=== PATIENT | female | born 1985 | race Caucasian/White ===

== ENCOUNTER → 2020-10-14 | Outpatient (CLI) | payer BC ==
[2020-10-14 16:06] LABS: Insulin Level 5.4 mIU/mL (3.0-25.0)
[2020-10-14 16:43] LABS: Thyroid Peroxidase Antibodies <28.0 U/mL (0.0-60.0)
[2020-10-14 16:44] LABS: Estradiol 55.2 pg/mL
[2020-10-14 17:35] LABS: Hemoglobin A1C 5.1 % (4.0-6.0)
[2020-10-14 18:07] LABS: ALT 18 U/L (8-44); AST 24 U/L (13-35); African American GFR (CKD) 84.5 (60.0-200.0); Glucose 88 mg/dL (70-110); Non-African American GFR(CKD) 72.9 (60.0-200.0)
[2020-10-14 18:15] LABS: Follicle Stimulating Hormone 10.4 mIU/mL; Prolactin 8.6 ng/mL (2.8-29.2)
[2020-10-14 18:44] LABS: HCG,Quantitative Serum <2.0 mIU/mL
== END | disposition home or self-care (01) ==
LOC: LABWHC1 07:58
PROVIDERS: ATTEND Physician Assistant
DX: N92.6 Irregular menstruation, unspecified (principal)
CPT/HCPCS: 36415; 82306; 82565; 82670; 82947; 83001; 83036; 83525; 84146; 84402; 84403; 84439; 84443; 84450; 84460; 84481; 84520; 84702; 86376; 86762; 86787; 86800; 86850; 86900; 86901

== ENCOUNTER → 2021-01-17 | Outpatient (CLI) | payer BC | END | disposition home or self-care (01) | LOC: LABWHC1 08:57 | PROVIDERS: ATTEND Obstetrics & Gynecology Reproductive Endocrinology | DX: N92.6 Irregular menstruation, unspecified (principal) | CPT/HCPCS: 36415; 84144 ==

== ENCOUNTER → 2021-02-14 | Outpatient (CLI) | payer BC | END | disposition home or self-care (01) | LOC: LABWHC1 16:11 | PROVIDERS: ATTEND Obstetrics & Gynecology Reproductive Endocrinology | DX: N97.9 Female infertility, unspecified (principal) | CPT/HCPCS: 36415; 84144 ==

== ENCOUNTER → 2021-02-28 | Outpatient (CLI) | payer BC ==
[2021-02-28 21:54] LABS: HCT 41.3 % (37.2-46.3); HGB 13.4 g/dL (12.0-15.0); MCH 29.8 pg (27.0-32.0); MCHC 32.4 g/dL (32.0-37.0); Mean Platelet Volume 10.2 fL (9.5-12.2); Platelet Count 233 X 10*3/uL (140-440); RBC 4.49 X 10*6/uL (4.10-5.20); RDW 11.8 % (11.5-14.5); WBC 5.37 X 10*3/uL (4.50-10.00)
[2021-02-28 23:23] LABS: HIV 2 AB Non-Reactive (Non-Reactive); HIV AB P24 Non-Reactive (Non-Reactive); HIV P24 AG Non-Reactive (Non-Reactive)
[2021-03-01 00:13] LABS: Hepatitis B Surface Antigen Non-Reactive (Non-Reactive); Hepatitis C IgG Antibody Non-Reactive (Non-Reactive)
[2021-03-01 14:14] LABS: C. trachomatis,PCR Negative (Neg,Equiv); Chlamydia trachomatis Source Urine; N. gonorrhoeae,PCR Negative (Neg,Equiv); Neisseria Source Urine
== END | disposition home or self-care (01) ==
LOC: LABWHC1 13:27
PROVIDERS: ATTEND Obstetrics & Gynecology
DX: N97.8 Female infertility of other origin (principal)
CPT/HCPCS: 36415; 85027; 86704; 86780; 86803; 87340; 87390; 87491; 87591

== ENCOUNTER 2021-12-23 07:25 | Inpatient (IN) | payer BC ==
[2021-12-23] MEDS ORDERED: OXYTOCIN 10 UNIT/ML 1 ML VIAL IM PRN (08:00)
[2021-12-23] MEDS ORDERED: CARBOPROST TROMETHAMINE 250 MCG/ML 1 ML AMP IM PRN (08:00)
[2021-12-23] MEDS ORDERED: TERBUTALINE 1 MG/ML VIAL SQ PRN (08:00)
[2021-12-23] MEDS ORDERED: METHYLERGONOVINE 0.2 MG/ML 1 ML AMP IM PRN (08:00)
[2021-12-23] MEDS ORDERED: LIDOCAINE 1% (PF) 10 MG/ML (30 ML SDV) SQ PRN (08:00)
[2021-12-23] MEDS ORDERED: LACTATED RINGERS 1,000 ML IV SCH ×2 (08:00→13:45)
[2021-12-23 08:19] LABS: Basophils % (A) 0 %; Eosinophils % (A) 0 %; HCT 37.5 % (34.0-46.0); HGB 12.1 gm/dL (11.4-16.0); Lymphocytes # (A) 1.1 k/uL (1.0-4.8); Lymphocytes % (A) 8 %; MCH 30.3 pg (25.0-35.0); MCHC 32.4 g/dL (31.0-37.0); MCV 93.6 fL (80.0-100.0); Mean Platelet Volume 7.7; Monocytes # (A) 0.4 k/uL (0-1.0); Monocytes % (A) 3 %; Neutrophils # (A) 11.5 k/uL (1.3-7.7); Neutrophils % (A) 86 %; Platelet Count 185 k/uL (150-450); RBC 4.01 m/uL (3.80-5.40); RDW 12.8 % (11.5-15.5); WBC 13.4 k/uL (3.8-10.6)
[2021-12-23] MEDS: LACTATED RINGERS 1,000 ML IV SCH ×3 (08:22→10:45)
[2021-12-23] MEDS ORDERED: fentaNYL (PF) 50 MCG/ML 5 ML AMP ONE (08:35)
[2021-12-23] MEDS ORDERED: ROPIVACAINE 5MG/ML 20ML VIAL ONE (08:35)
[2021-12-23] MEDS ORDERED: SODIUM CHLORIDE 0.9% 100 ML BAG ONE (08:35)
[2021-12-23] MEDS ORDERED: ROPIVACAINE 100 MG, fentaNYL (PF). 200 MCG in SODIUM CHLORIDE 0.9% 76 ML EPIDURAL ONE (10:09)
[2021-12-23] MEDS ORDERED: OXYTOCIN 30 UNITS/500 ML NS 30 UNIT in SALINE 1 500ML.BAG IV SCH ×2 (13:45→17:45)
[2021-12-23] MEDS ORDERED: HYDROCORTISONE 2.5% RECTAL CREAM 30 GM TUBE RECTAL PRN (17:34)
[2021-12-23] MEDS ORDERED: ACETAMINOPHEN TAB 325 MG TAB PO PRN (17:34)
[2021-12-23] MEDS ORDERED: SIMETHICONE 80 MG CHEWABLE PO PRN (17:34)
[2021-12-23] MEDS ORDERED: diphenhydrAMINE 25 MG CAP PO PRN (17:34)
[2021-12-23] MEDS ORDERED: diphenhydrAMINE 50 MG/ML 1 ML VIAL IVP PRN ×2 (17:34)
[2021-12-23] MEDS ORDERED: LANOLIN CREAM 5 GM TUBE TOPICAL PRN (17:34)
[2021-12-23] MEDS ORDERED: BENZOCAINE/MENTHOL SPRAY 1 GM/SPRAY AEROSOL TOPICAL PRN (17:34)
[2021-12-23] MEDS ORDERED: diphenhydrAMINE 50 MG CAP PO PRN (17:34)
[2021-12-23] MEDS ORDERED: ZOLPIDEM 5 MG TAB PO PRN (17:34)
--- NOTE | 2021-12-23 17:41 | P.HPOB ---
History of Present Illness H&P Date: 12/23/21 Chief Complaint: IUP at 401/7 weeks, labor This is a 36-year-old 1 para 0 at 40 1/7 weeks that presents to labor and delivery with complaints of regular painful contractions. Patient states contractions started around 11 PM. Patient presented to labor and delivery where she was noted to be 4 cm. Patient denied loss of fluid. Patient noted good movement. Patient has been receiving routine care with us been essentially uncomplicated. This was conceived via IVF. On bloodwork this patient is a blood type of B+, rubella status nonimmune, B surface antigen negative, HIV negative, group beta strep cultures were negative. Review of Systems Constitutional: Denies fatigue, Denies fever Cardiovascular: Reports leg edema Gastrointestinal: Denies constipation, Denies diarrhea, Denies nausea, Denies vomiting Genitourinary: Reports Past Medical History Past Medical History: Thyroid Disorder History of Any Multi-Drug Resistant Organisms: None Reported Additional Past Surgical History / Comment(s): fibroid removal, breast augmentation Past Anesthesia/Blood Transfusion Reactions: No Reported Reaction Past Psychological History: Anxiety Smoking Status: Never smoker Past Alcohol Use History: Occasional Additional Past Alcohol Use History / Comment(s): when not Past Drug Use History: None Reported - Past Family History Mother Family Medical History: Osteoarthritis (OA), Thyroid Disorder Father Family Medical History: Cancer, Diabetes Mellitus Medications and Allergies Home Medications Medication Instructions Recorded Confirmed Type Levothyroxine Sodium [Synthroid] 25 mcg PO DAILY 12/23/21 12/23/21 History Allergies Allergy/AdvReac Type Severity Reaction Status Date / Time No Known Allergies Allergy Verified 12/23/21 07:42 Exam Osteopathic Statement: *. No significant issues noted on an osteopathic structural exam other than those noted in the History and Physical/Consult. 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 heart tones have been category 1. She is comfortable with epidural. On cervical exam she is 7/80/-1 station amniotomy is performed clear fluid was obtained. Results Result Diagrams: 12/23/21 08:10 Abnormal Lab Results - Last 24 Hours (Table) 12/23/21 Range/Units 08:10 WBC 13.4 H (3.8-10.6) k/uL Neutrophils # 11.5 H (1.3-7.7) k/uL Assessment and Plan (1) Post-dates Current Visit: Yes Status: Acute Code(s): O48.0 - POST-TERM SNOMED Code(s): 37018918 (2) AMA (advanced maternal age) primigravida 35+ Current Visit: Yes Status: Acute Code(s): O09.519 - SUPERVISION OF ELDERLY PRIMIGRAVIDA, UNSPECIFIED TRIMESTER SNOMED Code(s): 33830653 (3) conceived through in vitro fertilization Current Visit: Yes Status: Acute Code(s): O09.819 - SUPRVSN OF PREG RSLT FROM ASSISTED REPRODCTV TECH, UNSP TRI SNOMED Code(s): 09455836 Plan: 36-year-old 1 para 0 at 40 and one sevenths weeks admitted to labor and delivery in active labor. Patient did receive epidural soon after admission. Patient is made slow progress through first stage of labor, Pitocin augmentation of labor is discussed and patient agrees. Anticipate spontaneous vaginal delivery later today.
--- NOTE | 2021-12-23 17:41 | P.PROBDLV ---
Vaginal Delivery Note - . Vaginal Delivery Note: 36-year-old 1 para 0 that presented to labor and delivery at 40-1/7 weeks with complaints of regular painful contractions. Patient was noted be 470 m dilated on admission. Patient was admitted to labor and delivery and quickly requested an epidural. Epidural was placed without difficulty by the anesthesia department. Patient progressed slowly through labor amniotomy is performed and clear fluid was obtained. Patient did require pitocin for augmentation of labor in addition. Patient progressed to complete began pushing. Patient was placed in a modified lithotomy position upon of the head, and with excellent maternal effort the head followed by the anterior/posterior shoulder shoulder were delivered. The infant was handed to the maternal abdomen. A viable female was delivered at 1712, weight of 7 lbs. 0 oz., Apgars of 9 and 9 at one and 5 minutes or sexually. After two-minute delay the umbilical cord was doubly clamped and cut and the placenta was delivered spontaneously intact with a three-vessel cord being noted. A spontaneous cry was noted at . On inspection the patient's vaginal vault a hymenal laceration x2 was appreciated along with a first-degree vaginal laceration. These were repaired with 2 [id number] sutures of 3-0 Rapide. Hemostasis was appreciated after repair. Uterus is noted be firm and below the umbilicus. Estimated blood loss 100 mL. Patient and tolerated delivery well and are resting comfortably. All counts were noted be correct 2 at the end of the procedure.
[2021-12-23] MEDS ORDERED: MEASLES-MUMPS-RUBELLA VACC/PF 12,500 UNIT/0.5 ML VIAL SQ ONE (18:20)
[2021-12-23] MEDS: IBUPROFEN 600 MG TAB PO SCH (19:02)
[2021-12-24] MEDS: LACTATED RINGERS 1,000 ML IV SCH (02:05)
[2021-12-24] MEDS: SENNOSIDES-DOCUSATE SODIUM 1 EACH TAB PO SCH ×2 (03:06→10:56)
[2021-12-24] MEDS: IBUPROFEN 600 MG TAB PO SCH ×2 (03:54→10:43)
--- NOTE | 2021-12-24 07:21 | P.DS ---
Providers Date of admission: 12/23/21 07:54 Expected date of discharge: 12/24/21 Attending physician: Tia Flanagan Primary care physician: Stated None - Discharge Diagnosis(es) (1) Post-dates Current Visit: Yes Status: Acute (2) AMA (advanced maternal age) primigravida 35+ Current Visit: Yes Status: Acute (3) conceived through in vitro fertilization Current Visit: Yes Status: Acute Hospital Course: This is a 36-year-old 1 now para 1 that presented to labor and delivery at 40 and one sevenths weeks with complaints of regular painful contractions, labor. Patient has been receiving routine care with myself which has been essentially uncomplicated, this was conceived through in vitro fertilization. Patient was noted to be 4 cm dilated on admission. Patient was admitted and quickly requested epidural placement. Epidural was placed without difficulty by the anesthesia department. Patient made slow progress, amniotomy was performed and clear fluid was obtained. Pitocin augmentation of labor was begun. Patient progressed to complete began pushing and had a normal spontaneous vaginal delivery of a viable female at 1712, weight of 7 lbs. 0 oz. Patient did sustain bilateral hymenal lacerations, first-degree vaginal laceration during delivery. These were repaired in the usual fashion with [id number] sutures of 3-0 Rapide. Patient's course has been uneventful. On this day #1 she is ambulating and voiding without difficulty. She is tolerating regular diet without nausea or vomiting. She states her pain is well-controlled. She would like discharge home at 24 hours. Patient Condition at Discharge: Good Plan - Discharge Summary New Discharge Prescriptions: No Action Levothyroxine Sodium [Synthroid] 25 mcg PO DAILY Discharge Medication List Levothyroxine Sodium [Synthroid] 25 mcg PO DAILY 12/23/21 [History] Follow up Appointment(s)/Referral(s): Tia Flanagan DO [Doctor of Osteopathic Medicine] - 4 Weeks Patient Instructions/Handouts: Vaginal Delivery (DC), Vaginal Delivery (GEN) Activity/Diet/Wound Care/Special Instructions: Patient can expect moderate vaginal bleeding post delivery, [id number] ibuprofen 600 mg as needed for pain. Should patient have any concerns prior to her 4 week check she is urged to call the office. Discharge Disposition: HOME SELF-CARE
[2021-12-24 08:49] VITALS: RESP 14
[2021-12-24 16:39] VITALS: BP 126/77; PULSE 67; TEMP 98.2
== END 2021-12-24 18:32 | disposition home or self-care (01) | DRG 807 ==
LOC: FBPOP 07:25 → 4FBP 07:54
PROVIDERS: ADMIT Obstetrics & Gynecology Obstetrics; ATTEND Obstetrics & Gynecology Obstetrics
PROC: 10E0XZZ Delivery of Products of Conception, External Approach (ICD-10-PCS; principal; 2021-12-23)
PROC: 0HQ9XZZ Repair Perineum Skin, External Approach (ICD-10-PCS; 2021-12-23)
PROC: 10907ZC Drainage of Amniotic Fluid, Therapeutic from Products of Conception, Via Natural or Artificial Opening (ICD-10-PCS; 2021-12-23)
PROC: 3E033VJ Introduction of Other Hormone into Peripheral Vein, Percutaneous Approach (ICD-10-PCS; 2021-12-23)
DX: O48.0 Post-term pregnancy (principal); Z37.0 Single live birth; O70.0 First degree perineal laceration during delivery; O99.344 Other mental disorders complicating childbirth; F41.9 Anxiety disorder, unspecified; Z3A.40 40 weeks gestation of pregnancy
CPT/HCPCS: 59025; 85025; 86850; 86900; 86901; 90707; 99213

== ENCOUNTER 2024-01-09 15:39 | Inpatient (IN) | payer BC ==
[2024-01-09 16:07] LABS: Glucose,Whole Blood 84 mg/dL (70-110)
[2024-01-09] MEDS: LACTATED RINGERS 1,000 ML IV SCH ×2 (16:31→18:45)
[2024-01-09 17:01] LABS: Basophils % (A) 0 %; Eosinophils # (A) 0.1 k/uL (0-0.7); Eosinophils % (A) 1 %; HCT 37.7 % (34.0-46.0); HGB 12.3 gm/dL (11.4-16.0); Lymphocytes # (A) 1.7 k/uL (1.0-4.8); Lymphocytes % (A) 17 %; MCH 29.9 pg (25.0-35.0); MCHC 32.6 g/dL (31.0-37.0); MCV 91.7 fL (80.0-100.0); Mean Platelet Volume 7.6; Monocytes # (A) 0.4 k/uL (0-1.0); Monocytes % (A) 4 %; Neutrophils # (A) 7.8 k/uL (1.3-7.7); Neutrophils % (A) 77 %; Platelet Count 145 k/uL (150-450); RBC 4.11 m/uL (3.80-5.40); RDW 12.8 % (11.5-15.5); WBC 10.2 k/uL (3.8-10.6)
[2024-01-09] MEDS ORDERED: OXYTOCIN 30 UNITS/500 ML NS BAG IV ONE (17:31)
[2024-01-09] MEDS ORDERED: ONDANSETRON 4 MG/2 ML VIAL ONE (17:31)
[2024-01-09] MEDS ORDERED: MORPHINE SULFATE (PF) 0.3 MG/0.3 ML SYR ONE (17:31)
[2024-01-09] MEDS ORDERED: PHENYLEPHRINE 10 MG/ML VIAL ONE (17:31)
--- NOTE | 2024-01-09 18:27 | P.HPOB ---
History of Present Illness H&P Date: 01/09/24 Chief Complaint: IUP at 38 and 5, GDM Is a 38-year-old at 38-5/7 weeks that presents to the office after nonreactive NST. Patient was receiving testing for gestational diabetes. Patient had good blood sugar control throughout the . Patient states she noted decreased movement yesterday and when she presented for her appointment today NST was noted to be nonreactive, category 2. Patient was sent to OB triage for further evaluation. IV fluids were begun and labs were obtained. Minimal change in heart rate were noted amniotomy was performed and meconium stained fluid was appreciated, thin in nature. On blood work this patient is a blood type of B+, rubella status immune, hepatitis B surface and a negative, HIV negative, RPR is nonreactive, group B strep culture is negative. Review of Systems Constitutional: Denies chills, Denies fatigue, Denies fever Ears, nose, mouth and throat: Denies headache Cardiovascular: Reports leg edema Respiratory: Denies dyspnea Gastrointestinal: Denies nausea, Denies vomiting Genitourinary: Reports Past Medical History Past Medical History: Thyroid Disorder History of Any Multi-Drug Resistant Organisms: None Reported Additional Past Surgical History / Comment(s): fibroid removal, breast augmentation Past Anesthesia/Blood Transfusion Reactions: No Reported Reaction Smoking Status: Never smoker - Past Family History Mother Family Medical History: Osteoarthritis (OA), Thyroid Disorder Father Family Medical History: Cancer, Diabetes Mellitus Medications and Allergies Home Medications Medication Instructions Recorded Confirmed Type Levothyroxine Sodium [Synthroid] 25 mcg PO DAILY 12/23/21 12/23/21 History Allergies Allergy/AdvReac Type Severity Reaction Status Date / Time No Known Allergies Allergy Verified 12/23/21 07:42 Exam Osteopathic Statement: *. No significant issues noted on an osteopathic structural exam other than those noted in the History and Physical/Consult. Intake and Output 01/09/24 01/09/24 01/09/24 06:59 14:59 22:59 Other: Weight 81.647 kg Targeted physical exam is performed this date General is well-nourished well- developed female in no acute distress, breathing is nonlabored, heart has a regular rate and rhythm, abdomen is gravid and appropriate for gestational age, on cervical exam she is 3/50/-3 station amniotomy is performed and thin meconium stained fluid is appreciated. heart tones noted to be category 2. Minimal variability with no decelerations are appreciated. Results Result Diagrams: 01/09/24 16:24 Abnormal Lab Results - Last 24 Hours (Table) 01/09/24 Range/Units 16:24 Plt Count 145 L (150-450) k/uL Neutrophils # 7.8 H (1.3-7.7) k/uL Assessment and Plan (1) 38 weeks gestation of Current Visit: Yes Status: Acute Code(s): Z3A.38 - 38 WEEKS GESTATION OF SNOMED Code(s): 27285749 (2) GDM (gestational diabetes mellitus), class A1 Current Visit: Yes Status: Acute Code(s): O24.410 - GESTATIONAL DIABETES MELLITUS IN , DIET CONTROLLED SNOMED Code(s): 12853618 (3) Non-reassuring electronic monitoring tracing Current Visit: Yes Status: Acute Code(s): O36.8390 - MATERN CARE FOR ABNLT FETL HRT RATE OR RHYM, UNSP TRI, UNSP SNOMED Code(s): 465859445 Plan: 38-year-old at 38-5/7 weeks that presents for evaluation secondary to category 2 heart tones, nonreassuring in nature. Patient has noted minimal variability despite oxygen, IVF. Meconium stained fluid is appreciated upon amniotomy. Patient is counseled on need for primary secondary to category 2 heart tones. Patient agrees with plan will proceed to operating suite. Anesthesia was notified and on their way.
--- NOTE | 2024-01-09 18:27 | P.OP ---
Date of Procedure: 01/09/24 Preoperative Diagnosis: IUP at 38 and 5, category 2 heart tones, meconium stained fluid, nonreassuring status. Postoperative Diagnosis: Same Procedure(s) Performed: Primary low-transverse section Anesthesia: spinal Surgeon: Tia Flanagan Spanisher #1: David Staton Estimated Blood Loss (ml): 870 IV fluids (ml): 1,000 Urine output (ml): 300 Pathology: other (Placenta) Condition: stable Disposition: observation Indications for Procedure: 38 yo at 38-5/7 weeks who presented to the hospital for routine obstetric appointment and nonstress test. Patient had a nonreactive NST therefore was sent to OB triage for further evaluation. Patient did note in OB triage that movement was decreased yesterday. Interventions were taken including oxygen, IV fluids, amniotomy revealing thin meconium stained fluid. No change in heart tones were appreciated therefore patient was counseled on primary secondary to nonreassuring heart tones. Patient agreed and was taken back to the operating suite. Operative Findings: Viable male was delivered at 1743, weight of 6 pounds 2 ounces. 2790 grams Thin meconium stained fluid was appreciated, no staining of membranes or placenta was appreciated grossly. Description of Procedure: The patient was prepped and draped in the usual fashion after spinal anesthesia was administered the anesthesia department. monitoring was performed during final procedure.. A Pfannenstiel incision was made and extended of the abdominal cavity without difficulty. The bladder peritoneum was elevated and incised and reflected distally. A 2 cm incision was made in the transverse plane of the lower uterine segment to enter the uterus at which time clear fluid was noted. The incision was extended in both directions using the bandage scissors. The head was encountered within the field and delivered up and through the incision where the nose and mouth were thoroughly suctioned. Remainder of the infant was delivered onto the surgical field where the cord was doubly clamped, cut, and the was passed for resuscitative measures with peds. RN A segment of cord was then doubly clamped, cut, and set aside should cord gases become necessary. The placenta was delivered manually, intact, and was grossly normal with a thin and tortuous with a three-vessel cord. The uterus was exteriorized and the interior cavity of the uterus swept of any remaining placental and membranous fragments with a laparotomy sponge. The margins of the incision were grasped with Soria clamps and the incision closed in 2 layers. First layer was a running locking layer of 0 Vicryl from margin to margin followed by a second layer of imbricating 0 chromic catgut from margin to margin. Any small points of bleeding were then made hemostatic with the Bovie. Once hemostasis was achieved, the posterior cul-de-sac was suctioned with a guard and the uterine and ovarian findings are as noted above. The uterus was replaced within the abdominal cavity and the gutters swept of any remaining blood fluid or clot. The incision was again reexamined and hemostasis was noted to be excellent. Any small point of bleeding were made hemostatic with the Bovie. Once hemostasis was achieved the parietal peritoneum was loosely reapproximated. The layer of muscles were examined and made hemostatic with the Bovie. Attention was then turned to the fascia which was closed with 2 running stitches of 0 Vicryl proceeding from the lateral margins to the midpoint. The subcutaneous tissues were irrigated, made hemostatic with the Bovie, and reapproximated with a running stitch of 30 Vicryl. The skin was reapproximated with 4-0 Vicryl. Estimated blood loss for the case was approximately 871 mL. All sponge instrument and needle counts are correct. There were no complications. The patient tolerated the procedure well and proceeded to the recovery room in stable condition. Both mother and are resting comfortably in recovery.
[2024-01-09] MEDS ORDERED: NALOXONE 0.4 MG/ML 1 ML VIAL IV PRN (18:29)
[2024-01-09] MEDS ORDERED: METOCLOPRAMIDE 5 MG/ML 2 ML VIAL IVP PRN (18:29)
[2024-01-09] MEDS ORDERED: ONDANSETRON 4 MG/2 ML VIAL IVP PRN (18:29)
[2024-01-09] MEDS ORDERED: diphenhydrAMINE 50 MG/ML 1 ML VIAL IVP PRN (18:29)
[2024-01-09] MEDS ORDERED: diphenhydrAMINE 25 MG CAP PO PRN (18:29)
[2024-01-09] MEDS ORDERED: diphenhydrAMINE 50 MG CAP PO PRN (18:29)
[2024-01-09] MEDS ORDERED: ZOLPIDEM 5 MG TAB PO PRN (18:29)
[2024-01-09] MEDS: OXYTOCIN 30 UNITS/500 ML NS 30 UNIT in SALINE 1 500ML.BAG IV SCH (18:47)
[2024-01-09] MEDS: ACETAMINOPHEN IV (For NPO) 1,000 MG in EMPTY BAG 1 BAG IVPB SCH (20:33)
[2024-01-09] MEDS: SENNOSIDES-DOCUSATE SODIUM 1 EACH TAB PO SCH (20:33)
[2024-01-09] MEDS: ACETAMINOPHEN TAB 500 MG TAB PO SCH (20:34)
[2024-01-10] MEDS: IBUPROFEN IV 800 MG in SODIUM CHLORIDE 0.9% 250 ML IV SCH (02:33)
[2024-01-10] MEDS: diphenhydrAMINE 50 MG/ML 1 ML VIAL IVP PRN (02:33)
[2024-01-10] MEDS: SIMETHICONE 80 MG CHEWABLE PO PRN (02:38)
[2024-01-10] MEDS: IBUPROFEN 600 MG TAB PO SCH (03:08)
[2024-01-10 08:46] LABS: Basophils % (A) 0 %; Eosinophils # (A) 0.1 k/uL (0-0.7); Eosinophils % (A) 1 %; HCT 32.9 % (34.0-46.0); HGB 10.9 gm/dL (11.4-16.0); Lymphocytes # (A) 1.6 k/uL (1.0-4.8); Lymphocytes % (A) 15 %; MCH 30.1 pg (25.0-35.0); MCHC 33.2 g/dL (31.0-37.0); MCV 90.8 fL (80.0-100.0); Monocytes # (A) 0.3 k/uL (0-1.0); Monocytes % (A) 3 %; Neutrophils # (A) 8.3 k/uL (1.3-7.7); Neutrophils % (A) 79 %; Platelet Count 133 k/uL (150-450); RBC 3.63 m/uL (3.80-5.40); RDW 13.1 % (11.5-15.5); WBC 10.5 k/uL (3.8-10.6)
--- NOTE | 2024-01-10 09:53 | P.PNOBGPC ---
Subjective - Subjective Principal diagnosis: Postop day 1 Interval history: Patient is doing well postoperatively. She is ambulating and voiding without difficulty. She is tolerating a regular diet without nausea or vomiting. Her lochia is minimal to moderate. She has been able to walk to the nursery, and wants to get the baby to breast. Patient reports: Reports appetite normal, Reports voiding normally, Reports pain well controlled, Reports ambulating normally [place]: doing well (In special care nursery, currently receiving IV antibiotics) Objective - Vital Signs Latest vital signs: Vital Signs Temp Pulse Resp BP Pulse Ox 01/10/24 09:00 97.9 F 77 16 124/78 98 01/10/24 06:44 97.8 F 83 16 117/53 01/09/24 22:44 97.7 F 71 16 108/58 01/09/24 20:44 69 16 126/75 98 01/09/24 20:10 69 16 131/80 100 01/09/24 20:05 68 16 132/76 100 01/09/24 19:50 71 16 120/68 100 01/09/24 19:35 69 16 104/63 99 01/09/24 19:20 68 16 134/70 98 01/09/24 19:10 96.8 F L 73 16 136/75 100 01/09/24 19:05 96.8 F L 78 16 136/75 100 01/09/24 18:50 96.6 F L 73 18 148/67 100 01/09/24 18:35 96.8 F L 70 18 121/68 100 01/09/24 18:20 96.5 F L 74 18 119/64 100 Intake and Output 01/09/24 01/10/24 01/10/24 22:59 06:59 14:59 Output Total 1785 600 Balance -1785 -600 Output: Urine 700 600 Uretheral (Alba) 400 Output, Quantitative 1085 Blood Loss Other: Voiding Method Indwelling Catheter Weight 81.647 kg - Exam Extremities: Present: normal, edema Abdomen: Present: normal appearance, soft Incision: Present: normal, dry, intact Uterus: Present: normal, firm - Labs Labs: Abnormal Lab Results - Last 24 Hours (Table) 01/09/24 01/10/24 Range/Units 16:24 08:19 RBC 3.63 L (3.80-5.40) m/uL Hgb 10.9 L (11.4-16.0) gm/dL Hct 32.9 L (34.0-46.0) % Plt Count 145 L 133 L (150-450) k/uL Neutrophils # 7.8 H 8.3 H (1.3-7.7) k/uL Assessment and Plan (1) 38 weeks gestation of Current Visit: Yes Status: Acute Code(s): Z3A.38 - 38 WEEKS GESTATION OF SNOMED Code(s): 60991854 (2) GDM (gestational diabetes mellitus), class A1 Current Visit: Yes Status: Acute Code(s): O24.410 - GESTATIONAL DIABETES MELLITUS IN , DIET CONTROLLED SNOMED Code(s): 30886263 (3) Non-reassuring electronic monitoring tracing Current Visit: Yes Status: Acute Code(s): O36.8390 - MATERN CARE FOR ABNLT FETL HRT RATE OR RHYM, UNSP TRI, UNSP SNOMED Code(s): 898643032 (4) S/P section Current Visit: Yes Status: Acute Code(s): Z98.891 - HISTORY OF UTERINE SCAR FROM PREVIOUS SURGERY SNOMED Code(s): 404065988 (5) Post-dates Current Visit: No Status: Acute Code(s): O48.0 - POST-TERM SNOMED Code(s): 75213647 (6) conceived through in vitro fertilization Current Visit: No Status: Acute Code(s): O09.819 - SUPRVSN OF PREG RSLT FROM ASSISTED REPRODCTV TECH, UNSP TRI SNOMED Code(s): 34116547 Plan: Patient is doing well postoperatively. Plan to continue routine postoperative care.
--- NOTE | 2024-01-10 10:49 | P.PN ---
Progress Note - Text 01/10/24 633am 38-year-old female status post with spinal Duramorph. Patient seen and evaluated for postop pain control, patient has a VAS of 1 with no complaint of nausea vomiting or pruritus. Patient doing well
--- NOTE | 2024-01-11 10:08 | P.PNOBGPC ---
Subjective - Subjective Principal diagnosis: Postop day 2, primary Interval history: Patient is doing well postoperatively. She is ambulating and voiding without difficulty. Pain is well-controlled. She is breast-feeding. Lochia is minimal. Patient reports: Reports appetite normal, Reports voiding normally, Reports pain well controlled, Reports ambulating normally [place]: doing well, nursing well (in SCN) Objective - Vital Signs Latest vital signs: Vital Signs Temp Pulse Resp BP Pulse Ox 01/11/24 07:45 97.5 F L 64 18 119/64 100 01/11/24 01:11 68 16 118/74 98 01/10/24 16:00 97.7 F 68 16 119/69 98 01/10/24 12:00 97.9 F 68 16 125/71 99 Intake and Output 01/10/24 01/11/24 01/11/24 22:59 06:59 14:59 Intake Total 600 Balance 600 Intake: Oral 600 Other: Voiding Method Toilet # Voids 2 1 - Exam Extremities: Present: normal, edema Abdomen: Present: normal appearance, soft Incision: Present: normal, dry, intact Uterus: Present: normal, firm Assessment and Plan (1) 38 weeks gestation of Current Visit: Yes Status: Acute Code(s): Z3A.38 - 38 WEEKS GESTATION OF SNOMED Code(s): 79365189 (2) GDM (gestational diabetes mellitus), class A1 Current Visit: Yes Status: Acute Code(s): O24.410 - GESTATIONAL DIABETES MELLITUS IN , DIET CONTROLLED SNOMED Code(s): 33836333 (3) Non-reassuring electronic monitoring tracing Current Visit: Yes Status: Acute Code(s): O36.8390 - MATERN CARE FOR ABNLT FETL HRT RATE OR RHYM, UNSP TRI, UNSP SNOMED Code(s): 582572564 (4) S/P section Current Visit: Yes Status: Acute Code(s): Z98.891 - HISTORY OF UTERINE SCAR FROM PREVIOUS SURGERY SNOMED Code(s): 943156088 (5) Post-dates Current Visit: No Status: Acute Code(s): O48.0 - POST-TERM SNOMED Code(s): 54143038 (6) conceived through in vitro fertilization Current Visit: No Status: Acute Code(s): O09.819 - SUPRVSN OF PREG RSLT FROM ASSISTED REPRODCTV TECH, UNSP TRI SNOMED Code(s): 10454180 Plan: Patient is doing well postoperatively. Plan to continue routine postoperative care.
[2024-01-11] MEDS: ESCITALOPRAM 20 MG TAB PO SCH (20:18)
--- NOTE | 2024-01-12 06:08 | P.PNOBGPC ---
Subjective - Subjective Principal diagnosis: Postop day 3, LTCS, NRFHTs Interval history: Patient is doing well postoperatively. She is ambulating and voiding without difficulty. She is tolerating regular diet without nausea or vomiting. Her pain is well-controlled. She would like to remain 1 more day as her infant is in the nursery. Patient reports: Reports appetite normal, Reports voiding normally, Reports pain well controlled, Reports ambulating normally [place]: doing well (in SCN ) Objective - Vital Signs Latest vital signs: Vital Signs Temp Pulse Resp BP Pulse Ox 01/12/24 00:00 98.3 F 79 16 123/80 97 01/11/24 16:00 97.9 F 117 H 18 128/77 98 01/11/24 07:45 97.5 F L 64 18 119/64 100 Intake and Output 01/11/24 01/11/24 01/12/24 14:59 22:59 06:59 Other: Voiding Method Toilet # Voids 1 2 - Exam Extremities: Present: normal. Absent: edema Abdomen: Present: normal appearance, soft Incision: Present: normal, dry, intact Uterus: Present: normal, firm Assessment and Plan (1) 38 weeks gestation of Current Visit: Yes Status: Acute Code(s): Z3A.38 - 38 WEEKS GESTATION OF SNOMED Code(s): 62136001 (2) GDM (gestational diabetes mellitus), class A1 Current Visit: Yes Status: Acute Code(s): O24.410 - GESTATIONAL DIABETES MELLITUS IN , DIET CONTROLLED SNOMED Code(s): 00369155 (3) Non-reassuring electronic monitoring tracing Current Visit: Yes Status: Acute Code(s): O36.8390 - MATERN CARE FOR ABNLT FETL HRT RATE OR RHYM, UNSP TRI, UNSP SNOMED Code(s): 868740140 (4) S/P section Current Visit: Yes Status: Acute Code(s): Z98.891 - HISTORY OF UTERINE SCAR FROM PREVIOUS SURGERY SNOMED Code(s): 278740165 (5) Post-dates Current Visit: No Status: Acute Code(s): O48.0 - POST-TERM SNOMED Code(s): 47106319 (6) conceived through in vitro fertilization Current Visit: No Status: Acute Code(s): O09.819 - SUPRVSN OF PREG RSLT FROM ASSISTED REPRODCTV TECH, UNSP TRI SNOMED Code(s): 73423401 Plan: Postop day 3, primary for nonreassuring heart tones. Patient is doing well postoperatively. Anticipate discharge home tomorrow.
[2024-01-13 01:07] VITALS: RESP 16
[2024-01-13 08:03] VITALS: BP 110/72; PULSE 86; TEMP 97.9
--- NOTE | 2024-01-13 12:06 | P.DS ---
Providers Date of admission: 01/09/24 16:52 Expected date of discharge: 01/13/24 Attending physician: Tia Flanagan Primary care physician: Stated None - Discharge Diagnosis(es) (1) 38 weeks gestation of Current Visit: Yes Status: Acute (2) GDM (gestational diabetes mellitus), class A1 Current Visit: Yes Status: Acute (3) Non-reassuring electronic monitoring tracing Current Visit: Yes Status: Acute (4) S/P section Current Visit: Yes Status: Acute (5) Post-dates Current Visit: No Status: Acute (6) conceived through in vitro fertilization Current Visit: No Status: Acute Hospital Course: This is a 38 yo that presented to labor and delivery from the office, non reactive NST. she was undergoing tseting for a dx of GDM A1, US completed at 36 weeks for growth efw 27%ile. For full details please see the dicated history od physical. She continued to have category 2 FHTs on labor and delivery despite IVF, position changes and supplemental oxygen. Amniotomy was preformed with noted meconium stained fluid. she was ultimately taken back to the OR for urgent LTCS secondary to non reassuring Category 2 heart tones. No decelerations were noted but minimal variability was appreciated. C section was preformed without difficulty and a viable make was delivered at 1743, weight initially 6- 2 when done in [facility] OR but an error was noted revealing weight error, should have been 5-2. Post operative course has been uneventful, on this post day 4 she is ambulating and voiding without difficulty. lochia is minimal pain is well controlled. she is noting increasing anxiety but has resumed her lexapro 20mg. is remaining in the nursery for continued observation. Patient Condition at Discharge: Good Plan - Discharge Summary New Discharge Prescriptions: No Action Escitalopram Oxalate [Lexapro] 20 mg PO DAILY Vit No.179/Iron/Folic [ Tablet] 1 each PO DAILY Aspirin [Children's Aspirin] 81 mg PO DAILY Discharge Medication List Aspirin [Children's Aspirin] 81 mg PO DAILY 01/09/24 [History] Escitalopram Oxalate [Lexapro] 20 mg PO DAILY 01/09/24 [History] Vit No.179/Iron/Folic [ Tablet] 1 each PO DAILY 01/09/24 [History] Follow up Appointment(s)/Referral(s): Tia Flanagan DO [Doctor of Osteopathic Medicine] - 2 Weeks Patient Instructions/Handouts: (DC), (GEN) Activity/Diet/Wound Care/Special Instructions: no tub baths or intercourse until 6 weeks post operatively, otc ibuprofen 600 mg or 3 tablets q 6 hours as needed for pain. FU in 2 weeks for routine post op check. she is to continue with her lexapro 20 mg daily Discharge Disposition: HOME SELF-CARE
== END 2024-01-13 16:16 | disposition home or self-care (01) | DRG 788 ==
LOC: FBPOP 15:39 → 4FBP 16:52
PROVIDERS: ADMIT Obstetrics & Gynecology Obstetrics; ATTEND Obstetrics & Gynecology Obstetrics
PROC: 4A0HXCZ Measurement of Products of Conception, Cardiac Rate, External Approach (ICD-10-PCS; 2024-01-09)
PROC: 10907ZC Drainage of Amniotic Fluid, Therapeutic from Products of Conception, Via Natural or Artificial Opening (ICD-10-PCS; 2024-01-09)
PROC: 10D00Z1 Extraction of Products of Conception, Low, Open Approach (ICD-10-PCS; principal; 2024-01-09 17:21)
DX: O34.211 Maternal care for low transverse scar from previous cesarean delivery (principal); O76 Abnormality in fetal heart rate and rhythm complicating labor and delivery; O77.0 Labor and delivery complicated by meconium in amniotic fluid; O48.0 Post-term pregnancy; Z79.890 Hormone replacement therapy; Z3A.38 38 weeks gestation of pregnancy; Z37.0 Single live birth; O24.429 Gestational diabetes mellitus in childbirth, unspecified control; O99.344 Other mental disorders complicating childbirth; F41.9 Anxiety disorder, unspecified
CPT/HCPCS: 85025; 86850; 86900; 86901; 88307